=== PATIENT | male | born 1990 | race African-American/Black ===

== ENCOUNTER 2017-04-08 03:26 | Emergency (ER) | payer BC ==
[~2017-04-08] VITALS: Ht 175.3 cm; Wt 65.0 kg
[~2017-04-08 03:26] MED LIST: Z.0.NO CURRENT MEDS; ZOFR4TAB3 SL
[2017-04-08 03:27] VITALS: BP 135/88; PULSE 55; RESP 16; TEMP 97.9; O2SAT 99
[2017-04-08] MEDS ORDERED: LEVE500 PO (03:35)
[2017-04-08] MEDS ORDERED: AMOX500C PO (03:35)
[2017-04-08] MEDS ORDERED: JANU50TA4 PO (03:35)
[2017-04-08] MEDS ORDERED: MAGICADU2 SWISH-SPIT (03:45)
[2017-04-08] MEDS ORDERED: DICL75TA PO (03:45)
[2017-04-08] MEDS ORDERED: IBUPROFEN 800 MG TAB PO ONE (03:45)
[2017-04-08] MEDS ORDERED: traMADol HCL 50 MG TAB PO ONE (03:45)
--- NOTE | 2017-04-08 03:48 | PD ---
HPI Chief Complaint: Oral / Dental Pain or Problem Time Seen by Provider: 03:40 Travel History International Travel<30 days: No Contact w/Intl Traveler<30days: No Traveled to known affect area: No History of Present Illness HPI 26-year-old male presents for evaluation of dental pain. Symptoms started 2 days ago. Pain is an aching pain in the right mandibular molar region which is constant, worse when chewing. No fevers or chills. Seen by dentist 2 days ago and prescribed amoxicillin. Pain has persisted which prompted evaluation. No other complaints. PFSH Past Medical History Diabetes: Yes (Janumet) Patient Takes Glucophage: No Diminished Hearing: No Immunizations Current: Yes Seizures: Yes Tetanus Vaccination: Unknown Influenza Vaccination: No Past Surgical History Surgical History: No Previous Surgery Social History Alcohol Use: Yes (occassional) Tobacco Use: No Substance Use: No Allergies-Medications (Allergen,Severity, Reaction): Coded Allergies: shellfish derived (Unverified Allergy, Severe, 04/08/17) Reported Meds & Prescriptions Reported Meds & Active Scripts Active Magic Mouthwash Adult Liq (Multi-Ingredient Mouthwash/Gargle) 120 Ml Susp 10 Ml SWISH-SPIT ACHS Each 5mL contains: Nystatin 200,000units, Diphenhydramine 4.25mg, Viscous Lidocaine 10mg, Mckay syrup 0.[address] (Diclofenac Sodium) 75 Mg Tabdr 75 Mg PO BID 10 Days Reported Keppra (Levetiracetam) 500 Mg Tab 500 Mg PO BID Amoxicillin 500 Mg Cap 500 Mg PO BID Janumet (Sitagliptin-Metformin) 50-500 Mg Tab 1 Tab PO BID Review of Systems Except as stated in HPI: all other systems reviewed are Neg Physical Exam Narrative GENERAL: Well-nourished male in no acute distress SKIN: Warm and dry. HEAD: Atraumatic. Normocephalic. EYES: Pupils equal and round. No scleral icterus. No injection or drainage. ENT: No nasal bleeding or discharge. Mucous membranes pink and moist. Right mandibular second molar is somewhat decayed and partially fractured. Tender to palpation. There is a mucocele in the right lower gumline as well. NECK: Trachea midline. No JVD. No lymphadenopathy or submandibular edema Data Data Last Documented VS Vital Signs Date Time Temp Pulse Resp B/P Pulse Ox O2 Delivery O2 Flow Rate FiO2 8/18/17 03:27 97.9 55 16 135/88 99 Room Air Orders Tramadol (Ultram) (04/08/17 03:45) Ibuprofen (Motrin) (04/08/17 03:45) MDM Medical Decision Making Medical Screen Exam Complete: Yes Emergency Medical Condition: Yes Medical Record Reviewed: Yes Differential Diagnosis Dental caries, pulpitis, pericoronitis, periodontal abscess, mucocele Narrative Course The patient will be discharged with a short course of diclofenac, Magic mouthwash for his dental pain. Advised follow-up with dentist. Diagnosis Primary Impression: Dentalgia Additional Impression: Mucous cyst of mouth Additional Instructions: Continue amoxicillin. Medication as prescribed. Do not take ibuprofen when taking diclofenac as they are in the same class of medication. Follow-up with dentist. Return for any emergent medical conditions. Med/Other Pt SpecificInfo: Prescription(s) given Scripts [id number]-Vldzftfuw Liq (Magic Mouthwash Adult Liq)120 Ml Susp10 Ml SWISH-SPIT ACHS #120 ML Ref 1 Each 5mL contains: Nystatin 200,000units, Diphenhydramine 4.25mg, Viscous Lidocaine 10mg, Mckay syrup 0.8 mL Prov:Umer Davenport MD 04/08/[address] 75 Mg Tabdr75 Mg PO BID 10 Days Ref 0 Prov:Umer Davenport MD 04/08/17 Disposition: 01 DISCHARGE HOME Condition: Stable Panfilo Camacho Apr 08, 2017 03:47
== END 2017-04-08 03:59 | disposition home or self-care (01) ==
LOC: NEPK 03:26
DX: K09.8 Other cysts of oral region, not elsewhere classified (principal); K08.89 Other specified disorders of teeth and supporting structures
CPT/HCPCS: 99283